=== PATIENT | male | born 1960 | race Caucasian/White ===

== ENCOUNTER → 2017-12-17 | Outpatient (CLI) | payer BC ==
--- NOTE | ~2017-12-17 | PF ---
[place], [place] PULMONARY FUNCTION TEST NAME: MALIVN MARTINEZ UNIT #: [id number] ROOM: DOCTOR: JUAN RAMON MART MD,PAYAL BIRTHDATE: [birth year] DOS: 12/17/2017 HISTORY: This is a 57-year-old outpatient, male, height of 72 inches, weight 270 pounds. Testing was ordered by Dr. Syed for the assessment of symptoms of shortness of breath. There were no past tobacco use. SPIROMETRY: The FVC was recorded 6.15 liters, 121% predicted value, FEV1 of 4.0 liters, 109% predicted value. Ratio of FEV1/FVC recorded 70% partial improvement occurred postbronchodilator of no clinical significance. Flow volume loop was suggestive of mild obstructive airway pattern. LUNG VOLUME: Thoracic gas volume recorded as 160%, residual volume 91%, total lung capacity 111%. The patient lung diffusion recorded normal, 113%. The patient's airway resistance and passive conductance normal. FINAL IMPRESSION: Normal pulmonary function tests were noted. PAYAL DELATORRE MD CM:PFREPORT:PULMONARY FUNCTION TEST [id number] PAYAL MART MD
== END | disposition home or self-care (01) ==
LOC: CP 08:27
DX: R06.02 Shortness of breath (principal)